=== PATIENT | female | born 1995 | race Caucasian/White ===

== ENCOUNTER 2022-04-17 12:52 | Outpatient (CLI) | payer MEDICAID, SELFPAY ==
[2022-04-17 13:11] LABS: Slide Review Reflex No
[2022-04-17 13:12] LABS: Hematocrit 34.6 % (33.0-51.0); Hemoglobin* 11.6 gm/dL (12.0-16.0); Mean Corpuscular HGB Conc 34 gm/dL (32-36); Mean Corpuscular Hemoglobin 30 pg (26-34); Mean Corpuscular Volume 88 fL (80-100); Platelet Count* 295 K/uL (140-440); Red Blood Count 3.92 m/uL (4.00-5.20); White Blood Count* 15.97 K/uL (4.50-11.00)
[2022-04-17 16:14] LABS: Barbiturate Screen Urine Negative (Negative); Benzodiazepines Screen Urine Negative (Negative); Cannabinoid Screen Urine Negative (Negative); Cocaine Screen Urine Negative (Negative); Methadone Screen Urine Negative (Negative); Methamphetamines Screen Urine Negative (Negative); Opiate Screen Urine Negative (Negative); Phencyclidine Screen Urine Negative (Negative); Tricyclic Antidepressant Urine Negative (Negative)
[2022-04-17 22:26] LABS: Amphetamine Screen Urine POSITIVE (Negative)
[2022-04-27 09:02] LABS: Oxycodone Screen Urine Negative (Negative)
== END 2022-04-17 12:53 | disposition home or self-care (01) ==
LOC: NFLDREF 12:53
PROVIDERS: PCP Family Medicine; Visit Provider Registered Nurse
DX: Z34.83 Encounter for supervision of other normal pregnancy, third trimester (principal); R00.0 Tachycardia, unspecified; Z3A.35 35 weeks gestation of pregnancy
CPT/HCPCS: 80306; 84443; 85027

== ENCOUNTER 2022-04-30 12:07 | Outpatient (CLI) | payer MEDICAID, SELFPAY ==
--- NOTE | 2022-04-30 12:15 | CRLHL7_ITS ---
For Patients: As a result of the Century Cures Act, medical imaging exams and procedure reports are released immediately into your electronic medical record. You may view this report before your referring provider. If you have questions, please contact your health care provider. INDICATION: COVID IN TECHNIQUE: Real time fernández scale imaging of the fetus was performed. COMPARISON: 04/02/2022 FINDINGS: Sonographic imaging demonstrates a single living intrauterine gestation. Fetus demonstrates a regular cardiac rate of 129 beats per minute. Fetus has a vertex position. The placenta lies anterior. Amniotic fluid volume appears normal and there is a single deepest pocket of 3.8 cm. The estimated weight is 2823gm which lies at the 30th %. On the prior OB ultrasound dated 04/02/2022 the estimated weight was at the 19th percentile. BPD 66th percentile. HC 11th percentile. AC 40th percentile. FL 9th percentile. The fetus was active and demonstrated normal breathing movements. There was normal flexion and extension of the trunk and extremities. IMPRESSION: Normal biophysical profile score 8/8. Sonographic gestational age 36 weeks 1 day and sonographic due date 05/27/2022. Sonographic age 6 days behind the clinical age. Estimated weight 30th percentile. Abdominal circumference 45th percentile. Femur length less than 10th percentile. Dictated by Frantz Garcia MD @ 04/30/2022 1:19:46 PM (Electronically Signed)
== END 2022-04-30 12:08 | disposition home or self-care (01) ==
LOC: US 12:07
PROVIDERS: PCP Family Medicine; Visit Provider Registered Nurse
DX: O98.513 Other viral diseases complicating pregnancy, third trimester (principal); U07.1 COVID-19; Z3A.36 36 weeks gestation of pregnancy
CPT/HCPCS: 76816; 76819; 87081; 87653

== ENCOUNTER 2022-05-05 21:20 | Inpatient (IN) | payer MEDICAID, SELFPAY ==
[2022-05-05] VITALS (7 sets, daily range): BP systolic 105–110; BP diastolic 64–71; PULSE 84–121; RESP 16–22; TEMP 36.3–36.7; O2SAT 98–100; BMI 27.6
--- NOTE | 2022-05-05 20:27 | PM.OBHPCS1 ---
OB - H&P: HPI History of Present Illness Chief complaint: Maternity Indications for induction: repeat section Narrative: Veronica Garza is a 27 year old 4 para 1021 with prior for arrhythmia who presents to Center reporting frequent painful contractions since 1800 today. She denies loss of fluid, or vaginal bleeding. movements are normal. Limited care; not seen since 31w GA. History of Present care: limited care Ultrasounds: abnormal US findings Abnormal ultrasound findings: Shortened cervix at MPP, 10-12mm without funneling or change with fundal pressure. complications: other complications comment: March 22, 2022 positive drug screen for oxycodone, amphetamine. Tobacco use. Medical complications: psychiatric Narrative: Depression: took Lexapro. ADD; used Adderall during . Labs Blood type: O (+) positive Rubella: immune RPR/VDLR: nonreactive GBS status: unknown HBsAG: negative Narrative: Chlamydia, gonorrhea, HepB, HepC, HIV negative. Hemoglobin 10.3, 6.2.2021. GBS unknown. Review of Systems Status of ROS: Reports: 10 or more systems reviewed and unremarkable except as noted in History and below Narrative: Fatigue, sleepiness. Normal bladder, bowel function. [facility] Medical History (Updated 04/30/22 @ 19:07 by Sheila Harper MD) Anxiety and depression High-risk in third trimester Insufficient care Positive urine drug screen Surgical History (Updated 05/05/22 @ 21:[address] Rivas MD) History of section Social History (Updated 04/30/22 @ 19:04 by Sheila Harper MD) Smoking Status: Current every day smoker Non-prescribed substance use details: 01/12/22 & 01/25/22: Urine tox screen (+) for oxycodone and amphetamines. On adderall for ADHD but not prescribed narcotics. 04/17/22: positive only for amphetamines. Little interest or pleasure in doing things: nearly every day Feeling down, depressed, or hopeless: more than half the days Meds Home Medications and Allergies Home Medications Medication Instructions Recorded Confirmed Type acetaminophen 500 mg tablet 1,000 mg PO Q6H PRN 04/17/22 04/30/22 History (Tylenol Extra Strength) dextroamphetamine-amphetamine ER 15 mg PO QDAY 04/17/22 04/30/22 History 15 mg 24hr capsule,extend release (Adderall XR) escitalopram oxalate 20 mg tablet 20 mg PO QDAY 04/17/22 04/30/22 History (Lexapro) ferrous sulfate 325 mg (65 mg 325 mg PO QDAY 04/17/22 04/30/22 History iron) tablet,delayed release progesterone micronized 200 mg 200 mg PO ONCE 04/17/22 04/30/22 History capsule zolpidem 10 mg tablet (Ambien) 10 mg PO DAILY PRN tab 04/17/22 04/17/22 History ondansetron 4 mg disintegrating 4 mg PO QDAY tab 04/30/22 04/30/22 History tablet zolpidem 5 mg tablet 5 mg PO ONCE tab 04/30/22 04/30/22 History Allergies Allergy/AdvReac Type Severity Reaction Status Date / Time No Known Drug Allergies Allergy Verified 04/30/22 13:07 OB - H&P: Exam Physical Exam: Vital signs: Pulse BP Pulse Ox 121 H 106/67 100 05/05/22 19:56 05/05/22 19:56 05/05/22 19:51 Constitutional: Constitutional: mild distress (with contractions), average body habitus and cooperative Routine HEENT Exam: Head: Present atraumatic and normocephalic Routine Neck Exam: Neck: Present full ROM Routine Respiratory Exam: Comments: Normal inspiratory effort. No cough, accessory muscle use, wheezing. Routine Cardiovascular Exam: Cardiovascular: RRR Routine Abdominal Exam: Comments: Gravid, soft, nontender. Prior Pfannenstiel incision very well healed, in mons pubis. Detailed Labor and Delivery Exam: Patient Gravid: yes Dilation (cm): 3 Effacement (%): 70 Contraction frequency (min): 2 Tachysystole: No Contraction intensity: Moderate Fetus (Single): Heart Rate Baseline: 120 Monitor Accelerations: Present Monitor Decelerations: None Routine Extremities Exam: Extremities: Present full ROM and normal inspection Routine Neurological Exam: Present alert, CN II-XII intact, moving all extremities and normal speech Routine Psychiatric Exam: Present normal affect, normal thought process, cooperative and anxious Assessment and Plan Assessment and plan (1) Anxiety and depression: Status: Acute (2) Positive urine drug screen: Problem comment: In : (+)opiates (not prescribed) and amphetamines (adderall) 04/17/22: (+) for amphetamines. Status: Acute (3) Insufficient care: Status: Acute (4) History of section: Status: Acute (5) Smoker: Status: Acute Plan 27yo with viable female fetus at 37w 5d GA. Continued contractions despite fluid bolus, more intense; in early labor. Discussion of risks, benefits to ERLTCS or TOLAC; all patient questions answered, she chooses ERLTCS. Admit to Center for elective repeat . Rh positive. Rubella immune. Received Tdap. History substance abuse. Test patient urine. TAP block postop with IV ketorolac, no narcotics. Adderall during . Continue . Smoker, unable to quit during ; reports 2 cig per day currently. Nicotine replacement if needed. Depression. Resume Lexapro 10mg.
[2022-05-05] MEDS: LACTATED RINGERS 1000 ML 1,000 ML 500 ML IV (21:57)
[2022-05-05 22:04] LABS: Basophils Percent Auto 0.2 % (0.0-3.0); Eosinophils Percent Auto 1.5 % (0.0-7.0); Hematocrit 31.6 % (33.0-51.0); Hemoglobin* 10.3 gm/dL (12.0-16.0); Immature Granulocytes Abs Auto 0.48 K/uL (0.00-0.30); Lymphocytes Percent Auto 14.7 % (20-44); Mean Corpuscular HGB Conc 33 gm/dL (32-36); Mean Corpuscular Hemoglobin 30 pg (26-34); Mean Corpuscular Volume 91 fL (80-100); Monocytes Percent Auto 7.6 % (0.0-11.0); Platelet Count* 323 K/uL (140-440); RDW Coefficient of Variation % 14.6 % (11.5-15.5); Red Blood Count 3.49 m/uL (4.00-5.20); White Blood Count* 16.02 K/uL (4.50-11.00)
[2022-05-05 22:05] LABS: Amphetamine Screen Urine POSITIVE (Negative); Barbiturate Screen Urine Negative (Negative); Benzodiazepines Screen Urine Negative (Negative); Buprenorphine Screen Urine Negative (Negative); Cannabinoid Screen Urine Negative (Negative); Cocaine Screen Urine Negative (Negative); Methadone Screen Urine Negative (Negative); Methamphetamines Screen Urine Negative (Negative); Opiate Screen Urine Negative (Negative); Oxycodone Screen Urine Negative (Negative); Phencyclidine Screen Urine Negative (Negative); Tricyclic Antidepressant Urine Negative (Negative)
[2022-05-05 22:10] LABS: Slide Review Reflex No
[2022-05-05] MEDS: CEFAZOLIN 2 GM in 0.9 % SODIUM CHLORIDE Mini-bag 100 ML IVPB (22:30)
[2022-05-05] MEDS: KETOROLAC 30 MG/ML inj IVP (22:44)
[2022-05-05] MEDS: BUPIVACAINE 0.5 %/EPI 1:200K 30 ML INJECTION (23:07)
[2022-05-05 23:09] LABS: SARS PCR* Negative SARS-CoV-2 (Negative)
[2022-05-05] MEDS: LACTATED RINGERS 1000 ML 1,000 ML 100 ML IV (23:26)
--- NOTE | 2022-05-05 23:45 | PM.OBPRCCS ---
Procedure Pre-op/Post-op diagnoses: Pre-Op/Post-Op Diagnoses Operation Date: 05/05/22 21:45 <No data on this case meets the specified criteria> Preop diagnosis: Prior section. Early labor. Desires ERLTCS. Postop diagnosis: Same. Viable female . Surgeon: Rd Rivas MD Assist: ROSA MARIA Lutz Anesthesia: Regional QBL: 148mL Fluids: 1000 mL crystalloid Drain: Alvarado to gravity Urine output: 200 mL clear intraop Specimen: None Complications: None apparent Findings: Uterine window. Normal appearing ovaries and tubes bilaterally. Normal-appearing appendix. Procedure Done: Global Procedure Details: Procedures Operation Date: 05/05/22 21:45 Actual Procedure Side Surgeon p Section Not Applicable IN Physician Veronica presented to the Center in early labor. After discussion of risks and benefits of TOLAC or ERLTCS, all her questions were answered to her satisfaction. She gave informed signed consent to proceed with repeat section. She walked to the OR. Veronica sat on the OR table, and regional anesthesia was placed. She was moved to supine position with a left lateral tilt. IV antibiotics were administered. A Alvarado catheter was placed. She was prepped and draped in the usual fashion. A time-out was held. 10 mL of 1% bupivacaine with epinephrine was infiltrated into the anticipated incision site. A Pfannenstiel skin incision was made with a scalpel, and carried sharply through the subcutaneous tissue, nicking the rectus fascia in the midline. The fascial incision was extended bilaterally with curved scissors. The superior edge of the fascia was grasped with 2 Drew clamps; the underlying rectus was divided away sharply and bluntly. The inferior fascia was grasped and sharply and bluntly from its underlying rectus muscle. The rectus was divided with electrocautery in the midline, keeping an underlying finger in the peritoneal cavity. The Bandar retractor was placed and tightened down after ensuring that no maternal tissue was between retractor and anterior abdominal wall. A uterine window was visualized across the lower uterine segment. membranes were nicked, and clear fluid returned. head was gently elevated from the maternal pelvis and guided through the hysterotomy; she began crying even before her body was delivered. body followed easily. IV Pitocin drip was started. She was shown to her parents, dried, and stimulated. After 60 seconds, her cord was clamped and cut; she was brought to the warmer for evaluation by Dr. Motta. The placenta was expressed; trailing membranes were removed with ring forceps. The uterine cavity was cleaned with a moist sponge. The hysterotomy was closed with running locking 0 Vicryl. A 2nd horizontal imbricating layer of the same suture was placed. The pelvis was copiously irrigated with warm normal saline. Excellent hemostasis was noted. Peritoneum was closed with running 3-0 plain gut. The fascia was reapproximated running pole PDS by halves, tying in the midline. Approximately 15 mL of bupivacaine 1% with epinephrine was infiltrated at the incision edges.After ensuring hemostasis of the subcutaneous tissue, the layer was reinforced with running 3-0 plain gut. The skin was closed with subcuticular 4-0 Monocryl, reinforced with skin glue, and covered with a Mepilex dressing without silver. All instrument, needle, and sponge counts were correct at the end of the case. The patient tolerated the procedure well, and was brought to recovery room in stable condition. Disposition: floor OB Delivery Proc Additional Procedures Tubal Ligation at the time of : No Other: No
[2022-05-06] VITALS (35 sets, daily range): BP systolic 107–133; BP diastolic 32–83; PULSE 73–93; RESP 8–16; TEMP 36.3–36.7; O2SAT 96–100
[2022-05-06] MEDS: ACETAMINOPHEN 500 MG TABLET 1000 MG PO ×4 (02:06→20:30)
[2022-05-06] MEDS: KETOROLAC 30 MG/ML inj IVP ×3 (04:44→17:11)
[2022-05-06 09:17] LABS: Basophils Percent Auto 0.1 % (0.0-3.0); Eosinophils Percent Auto 0.1 % (0.0-7.0); Hematocrit 29.7 % (33.0-51.0); Hemoglobin* 9.8 gm/dL (12.0-16.0); Lymphocytes Percent Auto 9.1 % (20-44); Mean Corpuscular HGB Conc 33 gm/dL (32-36); Mean Corpuscular Hemoglobin 30 pg (26-34); Mean Corpuscular Volume 90 fL (80-100); Monocytes Percent Auto 5.8 % (0.0-11.0); Platelet Count* 297 K/uL (140-440); RDW Coefficient of Variation % 14.4 % (11.5-15.5); White Blood Count* 22.06 K/uL (4.50-11.00)
[2022-05-06 09:29] LABS: Slide Review Reflex No
--- NOTE | 2022-05-06 09:33 | P.OBPN_ITS ---
OB - PN: A/P Assessment and Plan (1) Anxiety and depression: Status: Acute Assessment and Plan: Resume Lexapro this morning. (2) Positive urine drug screen: Problem details: In : (+)opiates (not prescribed) and amphetamines (adderall) 04/17/22: (+) for amphetamines. Status: Acute Assessment and Plan: Will not reorder Adderall while . (3) Insufficient care: Status: Acute (4) History of section: Status: Acute (5) Smoker: Status: Acute Assessment and Plan: Was down to 2 cigs daily; no nicotine replacement needed. Plan Remove Alvarado immediately. Ambulate 10min QID to open lungs, stimulate bowel activity, relieve muscle soreness. Local ice pack to LLQ. Continue scheduled ketorolac, with Tylenol prn refractory pain. Plan day: 1 Plan: routine postop care OB - PN: Subj Subjective Time Seen by Provider: 09:33 Date Seen: 05/06/22 Interval history: Eating solid food. Denies N/V. Discomfort LLQ. Has not passed flatus. Stood with assist. Desires catheter removal. Daughter latching moderately well. [place] status: OB - PN: Obj Exam Physical Exam: Vital signs: Temp Pulse Resp BP Pulse Ox 98.0 F 73 8 L 109/66 96 05/06/22 04:30 05/06/22 04:30 05/06/22 07:00 05/06/22 04:30 05/06/22 04:30 Constitutional: Constitutional: no acute distress, average body habitus and cooperative Routine Respiratory Exam: Comments: Normal respirations. No cough or wheeze. Routine Cardiovascular Exam: Comments: Normal rate and BP. No peripheral edema or calf tenderness. Routine Abdominal Exam: Comments: Soft. Fundus firm. Appropriate general tenderness, L>R. Incision clean, dry, intact with suture and glue. Normal induration; no surrounding erythema or ecchyosis. Routine Extremities Exam: Extremities: Present full ROM and normal inspection Routine Neurological Exam: Neurological: Present alert and CN II-XII intact Routine Psychiatric Exam: Psychiatric: Present normal affect Detailed Psychiatric Exam: Mood and affect: Present flat Urinary Catheter Management: Urethral: Cath placed during this visit: yes Urethral indwelling: Yes Reason for continuing: surgical procedure Insertion date: 05/05/22 Insertion time: 22:30 OB - PN: Obj Data Labs Labs: Laboratory Results - last 24 hr 05/05/22 05/05/22 05/05/22 21:34 21:34 21:55 WBC 16.02 H RBC 3.49 L Hgb 10.3 L Hct 31.6 L MCV 91 MCH 30 MCHC 33 RDW Coeff of Karina 14.6 Plt Count 323 Neut % (Auto) 73.0 H Lymph % (Auto) 14.7 L [place] % (Auto) 7.6 Eos % (Auto) 1.5 Baso % (Auto) 0.2 Neut # (Auto) 11.70 H Lymph # (Auto) 2.40 [place] # (Auto) 1.20 H Eos # (Auto) 0.20 Baso # (Auto) 0.00 Abs Immat Gran (auto) 0.48 H Urine Opiates Screen Negative Ur Buprenorphine Scrn Negative Ur Oxycodone Screen Negative Urine Methadone Screen Negative Ur Propoxyphene Screen Negative Ur Barbiturates Screen Negative U Tricyclic Antidepress Negative Ur Phencyclidine Scrn Negative Ur Amphetamines Screen POSITIVE A U Methamphetamines Scrn Negative U Benzodiazepines Scrn Negative Urine Cocaine Screen Negative U Marijuana (THC) Screen Negative SARS-CoV-2 (PCR) Negative SARS-CoV-2 Blood Type Antibody Screen 05/05/22 05/06/22 21:55 09:11 WBC 22.06 H RBC 3.30 L Hgb 9.8 L Hct 29.7 L MCV 90 MCH 30 MCHC 33 RDW Coeff of Karina 14.4 Plt Count 297 Neut % (Auto) 84.0 H Lymph % (Auto) 9.1 L [place] % (Auto) 5.8 Eos % (Auto) 0.1 Baso % (Auto) 0.1 Neut # (Auto) 18.50 H Lymph # (Auto) 2.00 [place] # (Auto) 1.30 H Eos # (Auto) 0.00 Baso # (Auto) 0.00 Abs Immat Gran (auto) 0.20 Urine Opiates Screen Ur Buprenorphine Scrn Ur Oxycodone Screen Urine Methadone Screen Ur Propoxyphene Screen Ur Barbiturates Screen U Tricyclic Antidepress Ur Phencyclidine Scrn Ur Amphetamines Screen U Methamphetamines Scrn U Benzodiazepines Scrn Urine Cocaine Screen U Marijuana (THC) Screen SARS-CoV-2 (PCR) Blood Type O Positive Antibody Screen NEGATIVE
[2022-05-06] MEDS: SODIUM CHLORIDE 0.9 % (FLUSH) 10 ML SYRINGE IVF (16:49)
[2022-05-06] MEDS: HYDROmorphone 0.5 mg/0.5 ml inj 1 MG IVP ×2 (16:49→23:01)
[2022-05-07 01:00] VITALS: BP 97/61; PULSE 82; RESP 16; TEMP 36.6; O2SAT 99
[2022-05-07] MEDS: ACETAMINOPHEN 500 MG TABLET 1000 MG PO ×3 (03:32→18:20)
[2022-05-07 04:27] VITALS: BP 109/71; PULSE 79; RESP 16; TEMP 36.3; O2SAT 97
[2022-05-07] MEDS: KETOROLAC 30 MG/ML inj IVP (05:18)
[2022-05-07 06:35] LABS: Hemoglobin* 9.8 gm/dL (12.0-16.0)
[2022-05-07 07:59] VITALS: BP 106/71; PULSE 87; RESP 16; TEMP 36.8; O2SAT 96
[2022-05-07] MEDS: IBUPROFEN 600 MG TABLET PO ×2 (08:56→15:24)
[2022-05-07] MEDS: ESCITALOPRAM 10 MG TABLET 20 MG PO (08:57)
[2022-05-07] MEDS: DOCUSATE SODIUM 100 MG CAPSULE PO (08:57)
[2022-05-07] MEDS: OXYCODONE 5 MG TABLET PO ×3 (11:07→18:54)
--- NOTE | 2022-05-07 15:33 | PC.SOCIAL ---
Social work: Met with pt in room regarding d/c plans. Pt responded minimally to questions. She shared that this is her second baby. She and hte father of her baby live together. She shared that he is involved and supportive of her and the baby. She has no concerns regarding safety at home. Her mother from [place] will be staying with her for a week to assist. Pt states she has all the supplies for baby at home and denies needing to be connected to any community resources for supplies. Pt is aware a mandatory child protection report is being made to [facility] CPS due to positive tox screen. Pt denies any illegal drug use. She states her tox screen was positive because of Adderall which she is prescribed and a pain reliever she was previously prescribed and took it later after she was no longer being prescribed it. Pt tested positive for amphetamines and oxycodone at visits on 01/09 and 04/11 and positive for amphetamine during her current hospital stay. Baby tested positive for amphetamines. Verbal and written report completed to [facility] Technical Support 1 [employer]. Worker confirmed supportive services were offered to patient when positive tox screen from appointment was reported in 04/11. Meconium result to be sent to [facility] when available.
[2022-05-07 17:15] VITALS: BP 121/79; PULSE 99; RESP 16; TEMP 36.8; O2SAT 97
--- NOTE | 2022-05-07 17:18 | PM.OBDSCS1 ---
DS: Providers Provider Date Seen: 05/07/22 Date of admission: 05/05/22 21:20 Primary care physician: Frantz Bowden MD Admitting Clinician: Rd Rivas MD Consults: 05/05/22 20:02 Consult to Supervisor Intermediates [CONS] Routine Comment: Reason for Consult:: Social Service Consult 05/07/22 09:36 Consult to Supervisor Intermediates [CONS] Routine Comment: Reason for Consult:: Substance Abuse Screening Attending Physician on discharge: Veronica Mason CNM Date of Discharge: 05/07/22 DS: Diagnosis Discharge Diagnosis (1) care and examination immediately after delivery: Status: Acute (2) Lactating mother: Status: Acute (3) Status post delivery: Status: Acute (4) Anemia due to acute blood loss: Status: Acute Exam Const: Vital Signs, click to edit/add: Vital Signs - 24 hr 05/06/22 18:00 05/06/22 19:00 05/06/22 20:05 Temperature Pulse Rate [Pulse Oximeter] 80 Respiratory Rate 16 16 16 Blood Pressure [Ri ght Arm] 108/74 Pulse Oximetry 99 05/06/22 21:15 05/06/22 22:30 05/07/22 01:00 Temperature 97.9 F Pulse Rate [Pulse Oximeter] 82 Respiratory Rate 16 16 16 Blood Pressure [Ri ght Arm] 97/61 Pulse Oximetry 99 05/07/22 04:27 05/07/22 07:59 Temperature 97.4 F L 98.2 F Pulse Rate [Pulse Oximeter] 79 87 Respiratory Rate 16 16 Blood Pressure [Ri ght Arm] 109/71 106/71 Pulse Oximetry 97 96 Common normals: no apparent distress and oriented x3 HENMT: Common normals: normocephalic Head and scalp: normocephalic Neck & C-Spine: Common normals: full ROM and supple Chest: Common normals: inspection of chest normal Resp: Common normals: normal respiratory effort and clear to auscultation bilaterally Auscultation: clear to auscultation bilaterally Cardio: Common normals: regular rate and regular rhythm Rate: regular rate Rhythm: regular rhythm GI: Common normals: Normal to inspection, nondistended, normoactive bowel sounds present and non-tender : Uterus: U/1 Lochia: scant Extremity: Common normals: normal to inspection, full ROM and no pedal edema Neuro: Common normals: oriented x3 and moves all extremities Psych: Common normals: mental status grossly normal and speech normal Speech: normal speech Skin: Common normals: no rashes or lesions noted Narrative: Incision: clean, dry and intact. Glue visible with small area midline. Sealed with skin glue. Mild bruising present around scar. Skin images (female): 1. Incision General skin exam: no rashes or lesions noted DS: Data Data Completed and Pending Labs on day of discharge: Labs from last 24 hours 05/07/22 06:25 Hgb 9.8 L OB - DS: Summary Hospital Course Hospital Course: The patient is a 27 year old G 4 P 2 at 37 6/7 weeks gestation that was admitted to the Center on 05/05/22 for spontaneous onset of labor. She had an uncomplicated delivery. She delivered a viable female . She is breast feeding and it is going well. Patient was initially prescribed hydromorphone for post surgical pain not alleviated by Tylenol or Toradol. Patient has a history of positive UDS for oxycodone. When asked about the oxycodone use, patient reported that she was prescribed it previously and had it at home. She took it for pain in when she had the flank pain, subsequently her UDS was positive. She reports she did take it again for other pain in her but had 5 mg tabs at home and only took 1/2. She does not have any more at home. UDS on admission to the Center was negative. She states that she did not realize that she should not take meds that were prescribed previously for other issues. She figured that the pain was so horrible that if she had them she could use them since they were medications prescribed to her. This morning she was very sluggish and sleepy after a dose of hydromorphone. It was relatively difficult to hold her attention. Nurses reported that she was so out of it after taking the medication that they had difficulty helping her with and didn't feel comfortable giving it. She preferred something different for pain and would like to discharge home today. Planned today to discontinue the Toradol and the hydromorphone. Ibuprofen ordered orally with oxycodone for breakthrough pain. We then planned to evaluate the day. This afternoon she is significantly better. She is currently sitting up in a chair . She feels the change of medications have significantly helped. She prefers to discharge home this evening. Safety assessment performed due to nursing concerns. She reports that she feels safe at home and no one is physically or emotionally harming her. She plans to have her mother with her for the next week and feels well supported at home. Patient has been doing well during the day and feels much better overall. She is ambulating well and passing gas. She is thinking about a Mirena IUD . Discussed with patient use of Adderall during . She reports that it worked well for her mood stabilization. She was told by a provider to stop use while . Discussed concern with Adderall use in is the possibility of a decreased milk supply and low risk for complications such as low weight gain and interference with appetite and sleep. Discussed that this baby was already exposed to some extent in utero. Reviewed risks and benefits to not taking versus taking. She was given 3 options including not taking with , waiting 2 weeks or until is well established, or resuming. She prefers to think about it but is aware that either of these options are supported. She has Adderall at home and will take as she took during if she decides to resume. Will follow-up with her . She was instructed to reach out with any mood concerns prior to her follow-up visits. Peripartum Data Procedures: Procedures Operation Date: 05/05/22 21:45 Actual Procedure Side Surgeon p Section Not Applicable IN Physician complications: none [place] Gender: Female Infant Discharge Plan: Home Status at Discharge Functional status at discharge: independent ambulation Overall status at discharge: patient is progressing back to baseline Time Spent with Patient Time attestation: Total time spent providing and/or coordinating discharge services: Time spent: Greater than 30 minutes Discharge Plan Discharge Disposition: Home, Self-Care Date of Admission: 05/05/22 21:20 Attending Provider on Discharge: Veronica Mason Primary Care Provider: Frantz Bowden Condition: Stable Anticipated Discharge Date/Time: 05/07/22 17:20 Discharge Medications: New docusate sodium 100 mg Capsule 100 mg PO BID PRN (Reason: Constipation) Qty: 90 0RF ibuprofen 600 mg Tablet 600 mg PO Q6H PRN (Reason: Pain) Qty: 60 0RF oxycodone 5 mg Tablet 5 mg PO Q4H PRN (Reason: Pain) Qty: 15 0RF Continued acetaminophen [Tylenol Extra Strength] 500 mg tablet 1,000 mg PO Q6H PRN0RF ferrous sulfate 325 mg (65 mg iron) tablet,delayed release (DR/EC) 325 mg PO QDAY 0RF dextroamphetamine-amphetamine [Adderall XR] 15 mg capsule,extended release 24hr 15 mg PO QDAY 0RF escitalopram oxalate [Lexapro] 20 mg tablet 20 mg PO QDAY 0RF zolpidem [Ambien] 10 mg tablet 10 mg PO DAILY PRN0RF zolpidem 5 mg tablet 5 mg PO ONCE 0RF ondansetron 4 mg tablet,disintegrating 4 mg PO QDAY Qty: 5 0RF Discontinued progesterone micronized 200 mg capsule 200 mg PO ONCE 0RF Discharge Orders: Discharge Order (Routine); Ordered 05/07/22 Ordered By: Veronica Mason Activity Restrictions/Additional Instructions: Discharge instructions were reviewed with the patient including signs and symptoms of infection and home going medications. Lifting Restrictions: 20 pounds for [address] taking pain meds. Off Work or School for 8 weeks. Symptoms to report to doctor: -Bleeding that saturates more than one pad per hour ?-Passing clots larger than the size of a golf ball ?-Pain not relieved by prescribed medication ?-Fever above 100.4 degrees Fahrenheit ?-A foul vaginal odor ?-Difficulty in emotions, mood and functions ?-Thoughts of hurting yourself and/or ?-Painful, reddened area in your breast ?-Any drainage, redness or tenderness in your IV/epidural site ?-Severe headache that doesn't improve after taking medications ?-Changes in vision, including temporary loss of vision, blurred vision, and/or light sensitivity ?-Upper abdominal pain (usually under ribs on the right side) ?-Decrease in urination or painful, frequent urinating ?-Chest pain ?-Shortness of breath ?-Tenderness or pain with redness and/swelling in the calf(s) of your leg [facility] 2 weeks and 6 weeks at [facility]. consultation services are available to all mothers and babies for the first year after delivery.? To make an appointment, please call [phone]. Activity Level: Light activity Discharge Diet: Regular Follow Up Appointments: [facility] [Provider Group] (At 2 weeks and 6 weeks for routine visits.) Forms: MyHealth Info Instructions
--- NOTE | 2022-05-24 11:02 | W.ANESCHARGE ---
Anesthesia Charges Start Date/Time Anesthesia Start Date: 05/05/22 Anesthesia Start Time: 22:26 Stop Date/Time Anesthesia Stop Date: 05/05/22 Anesthesia Stop Time: 23:46 Summary Emergency: Yes
== END 2022-05-07 19:05 | disposition home or self-care (01) | DRG 787 ==
LOC: OB OUT 21:43 → OB 21:43
PROVIDERS: Admitting Provider Obstetrics & Gynecology; PCP Family Medicine; Visit Provider Obstetrics & Gynecology
PROC: (CPT 59514; principal; 2022-05-05 21:45)
DX: O34.211 Maternal care for low transverse scar from previous cesarean delivery (principal); O99.324 Drug use complicating childbirth; O75.82 Onset (spontaneous) of labor after 37 completed weeks of gestation but before 39 completed weeks gestation, with delivery by (planned) cesarean section; F15.90 Other stimulant use, unspecified, uncomplicated; F11.90 Opioid use, unspecified, uncomplicated; O99.334 Smoking (tobacco) complicating childbirth; F17.210 Nicotine dependence, cigarettes, uncomplicated; O99.344 Other mental disorders complicating childbirth; F90.9 Attention-deficit hyperactivity disorder, unspecified type; F41.9 Anxiety disorder, unspecified; F32.A Depression, unspecified; Z37.0 Single live birth; Z3A.37 37 weeks gestation of pregnancy
CPT/HCPCS: 01961; 36415; 80306; 85018; 85025; 86850; 86900; 86901; 87635; 99140; A9270; J0690; J1100; J1170; J1200; J1885; J2274; J2370; J2590; J3490; J7120